=== PATIENT | female | born 1990 | race Hispanic/Latino ===

== ENCOUNTER → 2024-04-26 09:55 | Outpatient (REF) | payer OTHER, SELFPAY ==
[2024-04-26 11:18] LABS: Vitamin D, 25-OH*** 37.5 ng/mL (30-80)
[2024-04-26 12:10] LABS: Glycohemoglobin (HgbA1c) 5.7 % (4.0-5.6)
== END ==
LOC: CLINIC 09:55
PROVIDERS: ATTENDING PHYSICIAN Nurse Practitioner Adult Health
DX: R73.03 Prediabetes (principal); E55.9 Vitamin D deficiency, unspecified
CPT/HCPCS: 36415; 82306; 83036

== ENCOUNTER 2024-04-28 11:33 | Emergency (ER) | payer OTHER, SELFPAY ==
[2024-04-28 11:50] VITALS: BP 120/77
--- NOTE | 2024-04-28 14:38 | ED.GENMED ---
History of Present Illness
General
Chief Complaint: Back Pain
Source: patient
Exam Limitations: none
Time Seen by Provider: 04/28/24 12:55
Travel History
Have you had any contact with someone who has COVID-19?: No
Do you have any symptoms of coronavirus? Fever > 100 degrees, chills, cough, shortness of breath, sore throat, loss of taste or smell, muscle aches, or headache?: No
History of Present Illness
History of Present Illness:
33-year-old female presents complaining of lower back pain that started yesterday after bending over to tie her shoes. Since then she has had low back pain that is worse with motion. She denies any bowel or bladder dysfunction. No fever. She
took Advil and used a patch on her back. No other complaints at this time. Please note entire history was performed with [place] speaking [employer] via the language line
Past History
Past History
ED Past Medical History: None
ED Past Surgical History: None
Social History
Personal:
Living: with family
Phy Exam
Physical Exam
Physical Exam:
General: Well-appearing female no acute respiratory
HEENT: Normocephalic atraumatic
Musculoskeletal exam: Mild diffuse tenderness about the paraspinous area of the lumbar spine. Good range of motion bilateral lower extremities
Neurologic: Good sensation bilateral lower extremities bilateral Quay reflexes 2+. Normal gait
Course
Vital Signs
Initial and Last Documented VS:
Initial Vital Signs
Temp Pulse Resp BP Pulse Ox
98.4 F 64 17 120/77 100
04/28/24 11:50 04/28/24 11:50 04/28/24 11:50 04/28/24 11:50 04/28/24 11:50
Last Documented Vital Signs
Temp Pulse Resp BP Pulse Ox
98.4 F 64 17 120/77 100
04/28/24 11:50 04/28/24 11:50 04/28/24 11:50 04/28/24 11:50 04/28/24 11:50
MDM/Problems Addressed
Differential Diagnosis Includes:
Low back pain without associated red flag signs consistent with cauda equina. No fever to suggest infectious source. Pain is made worse with motion patient has no neurologic deficit. Suspect lumbar strain. Considered x-rays help not indicated at
this point. Recommended continued anti-inflammatories and prescribed a muscle relaxer. A note for work was provided. She was stable for discharge
*Critical Care Note
Total Time (30-74mins, 75-104mins- exclusive of procedures): Not Applicable
ED Attending Note
-
Portions of this chart may have been created with voice recognition software.� Occasional wrong word or��sound alike� substitutions may have occurred due to the inherent limitations of voice recognition software.
Discharge Plan
Departure
Patient Disposition: Home (Routine Discharge)
Date of Disposition: 04/28/24
Time of Disposition: 14:40
Patient with high blood pressure during this ER visit?: No
Discharge Problem:
Lumbar strain
Instructions: Low Back Pain (DC)
Prescriptions:
New
methocarbamol 750 mg tablet
750 mg PO TID PRN (Reason: spasm) Qty: 10 0RF
Referrals:
NONE,* [Family Provider] -
Stand Alone Forms: Return to Work
Activity Restrictions/Additional Instructions:
Rest. Continue with warm compresses to the back. Continue Advil 2 to 3 tablets every 6 hours as needed for pain. Use muscle relaxer as needed for spasm. Return if worse otherwise follow-up with your family doctor
Interventions
Interventions:
*Risk Screen - Suicide Last Done: 04/28/24 11:54
*Neglect/Abuse Screening Last Done: 04/28/24 11:54
*ED COVID-19 Vaccine History Last Done: 04/28/24 11:54
Discharge Date and Time
Print Language: AMHARIC
== END 2024-04-28 14:53 | disposition home or self-care (01) ==
LOC: EMR 11:33
PROVIDERS: EMERGENCY PHYSICIAN Emergency Medicine
DX: S39.012A Strain of muscle, fascia and tendon of lower back, initial encounter (principal); X58.XXXA Exposure to other specified factors, initial encounter
CPT/HCPCS: 99283

== ENCOUNTER → 2024-12-13 09:39 | Outpatient (REF) | payer OTHER, SELFPAY ==
[2024-12-13 10:52] LABS: Vitamin D, 25-OH*** 46.2 ng/mL (30-80)
[2024-12-13 11:21] LABS: Glycohemoglobin (HgbA1c) 5.4 % (4.0-5.6)
== END ==
LOC: REG 09:39
PROVIDERS: ATTENDING PHYSICIAN Nurse Practitioner Adult Health
DX: R73.03 Prediabetes (principal); E55.9 Vitamin D deficiency, unspecified
CPT/HCPCS: 36415; 82306; 83036